=== PATIENT | female | born 1965 | race Caucasian/White ===

== ENCOUNTER → 2017-01-27 | Outpatient (CLI) | payer OTHER ==
--- NOTE | 2017-01-27 16:29 | REPMRS ---
Patient History The patient states she had a clinical breast exam in 01/2017. Patient is postmenopausal and had first child at age 32. Digital Woman Screen Mammo: January 27, 2017 - Exam #: [id number] Bilateral CC and MLO view(s) were taken. Technologist: Rachel Morse, Technologist Prior study comparison: October 01, 2014, digital bilateral screening mammo, performed at [facility]. FINDINGS: There are scattered fibroglandular densities. There has been no change in the appearance of the mammogram from the prior studies. There is a mild amount of residual fibroglandular tissue which is fairly symmetric. There is no interval development of dominant mass, architectural distortion, or clustered microcalcification suggestive of malignancy. ASSESSMENT: BI-RADS/ACR category 1 mammogram. Negative. Recommendation Routine screening mammogram in 1 year (for women over age 40). This mammogram was interpreted with the aid of an FDA-approved computer-aided dectection system. Electronically Signed By: Иван Rogers MD 01/27/17 [id number]
== END ==
LOC: M WHC 14:47
PROVIDERS: ATTEND Family Medicine
DX: Z12.31 Encounter for screening mammogram for malignant neoplasm of breast (principal); Z78.0 Asymptomatic menopausal state
CPT/HCPCS: G0123; G0202; G0463

== ENCOUNTER → 2017-03-29 | Outpatient (CLI) | payer OTHER ==
--- NOTE | 2017-03-29 13:47 | REP ---
Right ankle series: Four views. History: Right ankle injury. Comparison study June 24, 2014. Findings: There is a transversely oriented nondisplaced fracture of the distal fibular malleolus. No distal tibial fracture is seen. There is moderate to marked lateral ankle swelling. There are chip fractures noted on oblique radiograph along the lateral aspect of the talus and at the anterolateral aspect of the calcaneus. The patient is status post first MTP joint arthrodesis with screw plate fixation. Achilles calcaneal spurring is noted. Impression: Lateral malleolar fracture and tiny chip fractures at the lateral aspects of the talus and anterior calcaneus. Signed by Jovon Burrows MD 03/29/2017 04:33 P
== END ==
LOC: M LRY 13:08
PROVIDERS: ATTEND Nurse Practitioner Family
DX: S82.831A Other fracture of upper and lower end of right fibula, initial encounter for closed fracture (principal); W19.XXXA Unspecified fall, initial encounter; Y92.9 Unspecified place or not applicable; Y93.9 Activity, unspecified; Y99.8 Other external cause status
CPT/HCPCS: 29515; 73610; 90715; G0463

== ENCOUNTER → 2017-05-02 | Outpatient (REF) | payer OTHER ==
[2017-05-02 17:34] LABS: MEAN CORPUSCULAR HEMOGLOBIN 31.2 pg (27.0-33.0); MEAN CORPUSCULAR HGB CONC 34.5 g/dl (32.0-36.5); MEAN CORPUSCULAR VOLUME 90.4 fl (80.0-96.0); RED CELL DISTRIBUTION WIDTH 12.7 % (11.5-14.5); WHITE BLOOD COUNT 7.3 K/mm3 (4.0-10.0)
== END ==
LOC: M SFHCLERA 14:55
PROVIDERS: ATTEND Family Medicine
DX: T14.8 Other injury of unspecified body region (principal); X58.XXXA Exposure to other specified factors, initial encounter; Y92.9 Unspecified place or not applicable; Y93.9 Activity, unspecified; Y99.8 Other external cause status

== ENCOUNTER → 2017-05-19 | Outpatient (CLI) | payer OTHER ==
[~2017-05-19] VITALS: Ht 154.9 cm; Wt 86.6 kg
[~2017-05-19] MED LIST: AMIT10TA PO; ASPI81CH PO; ESTR25TD TD; FLUT1SPR2; IBUP200T45 PO; LIDOCAINE 2% INJ 100 MG/5 ML SDV (FOR ANES.) As Ordered ONE; NEXI40CA PO; NS 1,000 ML IV ONE; PROPOFOL 200 MG/20 ML VIAL As Ordered ONE; REFR0.5D8 OP; TIZA4CAP3 PO; [UNRECOGNIZED DRUG - CODE] OU; [UNRECOGNIZED DRUG - CODE] PO
--- NOTE | 2017-05-19 10:02 | ROOR ---
Patient Name: Maggie Alarcon Procedure Date: 05/19/2017 9:42 AM Date of : 1965 Age: 51 Room: [facility] Gender: Female Note Status: Finalized Procedure: Total Colonoscopy to Cecum Indications: Screening for colorectal malignant neoplasm Providers: Ramón Livingston MD Referring MD: Emeterio Finch MD Requesting Provider: Medicines: Monitored Anesthesia Care Complications: No immediate complications. Procedure: Pre-Anesthesia Assessment: - The heart rate, respiratory rate, oxygen saturations, blood pressure, adequacy of pulmonary ventilation, and response to care were monitored throughout the procedure. The Colonoscope was introduced through the anus and advanced to the cecum, identified by appendiceal orifice and ileocecal valve. The colonoscopy was performed without difficulty. The patient tolerated the procedure well. The quality of the bowel preparation was excellent. Findings: The perianal and digital rectal examinations were normal. Non-bleeding internal hemorrhoids were found during retroflexion. The hemorrhoids were small and Grade I (internal hemorrhoids that do not prolapse). No other significant abnormalities were identified in a careful examination of the remainder of the colon. The exam was otherwise without abnormality on direct and retroflexion views. Impression: - Non-bleeding internal hemorrhoids. - The examination was otherwise normal on direct and retroflexion views. - No specimens collected. - The exam was otherwise normal to the cecum. Recommendation: - Patient has a contact number available for emergencies. The signs and symptoms of potential delayed complications were discussed with the patient. Return to normal activities tomorrow. Written discharge instructions were provided to the patient. - High fiber diet. - Discharge patient to home. - Continue present medications. - Repeat colonoscopy in 10 years for screening purposes. - Return to referring physician. - The findings and recommendations were discussed with the patient's family. Ramón Livingston MD Ramón Livingston MD 05/19/2017 10:01:48 AM This report has been signed electronically. Number of Addenda: 0 Note Initiated On: 05/19/2017 9:42 AM Estimated Blood Loss: Estimated blood loss: none.
[2017-05-19 10:20] VITALS: BP 135/89
== END | disposition home or self-care (01) ==
LOC: M OPP 08:58
PROVIDERS: ATTEND Internal Medicine Gastroenterology
DX: Z12.11 Encounter for screening for malignant neoplasm of colon (principal); K64.0 First degree hemorrhoids; E78.00 Pure hypercholesterolemia, unspecified; K21.9 Gastro-esophageal reflux disease without esophagitis; J30.2 Other seasonal allergic rhinitis; Z79.899 Other long term (current) drug therapy; Z79.82 Long term (current) use of aspirin; Z88.2 Allergy status to sulfonamides; Z88.1 Allergy status to other antibiotic agents

== ENCOUNTER → 2021-06-15 | Outpatient (CLI) | payer OTHER ==
[~2021-06-15] MED LIST changes: -AMIT10TA PO; +AMIT10TA7 PO; -ASPI81CH PO; +ASPI81CH49 PO; -LIDOCAINE 2% INJ 100 MG/5 ML SDV (FOR ANES.) As Ordered ONE; -NS 1,000 ML IV ONE; -PROPOFOL 200 MG/20 ML VIAL As Ordered ONE; +TIZA4CAP PO; -TIZA4CAP3 PO
--- NOTE | 2021-06-15 20:38 | REPVR ---
PROCEDURE INFORMATION: Exam: CT Maxillofacial Without Contrast, Sinus Exam date and time: 06/15/2021 10:15 AM Age: 55 years old Clinical indication: Face pain; Additional info: Chronic sinusitis TECHNIQUE: Imaging protocol: CT Maxillofacial without contrast. Focus on the sinuses. Radiation optimization: All CT scans at this facility use at least one of these dose optimization techniques: automated exposure control; mA and/or kV adjustment per patient size (includes targeted exams where dose is matched to clinical indication); or iterative reconstruction. COMPARISON: No relevant prior studies available. FINDINGS: Frontal sinuses: Normal. No air-fluid levels. Ethmoid air cells: Normal. No air-fluid levels. Sphenoid sinuses: Normal. No air-fluid levels. Maxillary sinuses: Normal. No air-fluid levels. Ostiomeatal units are patent. Nasal cavity/Septum: Minimal leftward deviation of the nasal septum anteriorly. The middle ear cavities and mastoid air cells are clear. Orbital cavity: Orbits are normal. Globes are unremarkable. Bones/joints: Hyperostosis frontalis. Degeneration of the right temporomandibular joint. Soft tissues: Unremarkable. IMPRESSION: No evidence of sinusitis. Electronically signed by: Sarah Wesley On 06/15/2021 20:37:23 PM
== END ==
LOC: M PLAIMG 09:31
PROVIDERS: ATTEND Family Medicine
DX: J32.9 Chronic sinusitis, unspecified (principal)

== ENCOUNTER → 2022-08-04 | Outpatient (CLI) | payer OTHER ==
[~2022-08-04] MED LIST changes: -IBUP200T45 PO; +IBUP200T46 PO
[2022-08-04 19:04] LABS: INR 0.96; PROTHROMBIN TIME 13.1 SECONDS (12.7-14.5)
[2022-08-04 19:12] LABS: ALBUMIN 4.3 GM/DL (3.2-5.2); BILIRUBIN,DIRECT 0.1 MG/DL (0.0-0.2); BILIRUBIN,TOTAL 0.2 MG/DL (0.2-1.0); PERCENT SATURATION 17.7 % (13.2-45.0); TOTAL PROTEIN 7.5 GM/DL (6.4-8.2)
== END ==
LOC: M LAB 17:40
PROVIDERS: ATTEND Internal Medicine Gastroenterology
DX: R74.8 Abnormal levels of other serum enzymes (principal)

== ENCOUNTER → 2024-06-14 | Outpatient (CLI) | payer OTHER | LOC: M RAD 10:07 | PROVIDERS: ATTEND Internal Medicine Gastroenterology | DX: R74.8 Abnormal levels of other serum enzymes (principal); R10.11 Right upper quadrant pain ==

== ENCOUNTER → 2024-10-04 | Outpatient (CLI) | payer OTHER | LOC: M RAD 07:10 | PROVIDERS: ATTEND Internal Medicine Gastroenterology | DX: K82.8 Other specified diseases of gallbladder (principal); R10.11 Right upper quadrant pain | CPT/HCPCS: 78227; A9537 ==

== ENCOUNTER 2024-12-16 08:41 | Day surgery (SDC) | payer OTHER ==
[~2024-12-16] VITALS: Ht 152.4 cm; Wt 76.2 kg
[~2024-12-16 08:41] MED LIST changes: +CALC-356 PO; +D-10TAB3 PO; +FAMO1TAB11 PO; +LIDOCAINE 2% 100MG/5ML SDV (FOR ANES.) As Ordered ONE; +LORA-930 PO; +MAG100TA PO; +POTA99TA10 PO; +ROSU10TA61 PO; +VITA500C3 PO; +VITATAB73 PO; +fentaNYL 100 MCG/2 ML INJECTION As Ordered ONE; +propofoL 500 MG/50 ML VIAL As Ordered ONE
[2024-12-16] MEDS ORDERED: ePHEDrine SULFATE 25 MG/5 ML(5MG/ML) SYRINGE As Ordered ONE (09:45)
[2024-12-16 10:25] VITALS: BP 119/76; TEMP 96.6; O2SAT 99
== END 2024-12-16 10:33 | disposition home or self-care (01) ==
LOC: M OPP 08:41
PROVIDERS: ATTEND Internal Medicine Gastroenterology
DX: K63.5 Polyp of colon (principal); R19.4 Change in bowel habit; K64.8 Other hemorrhoids; R10.11 Right upper quadrant pain; Z88.6 Allergy status to analgesic agent; Z88.2 Allergy status to sulfonamides; Z88.8 Allergy status to other drugs, medicaments and biological substances; Z79.899 Other long term (current) drug therapy
CPT/HCPCS: 43235; 45385; 88305; J3010